=== PATIENT | female | born 1990 | race Caucasian/White ===

== ENCOUNTER 2016-09-25 10:06 | Inpatient (IN) | payer BC ==
[~2016-09-25] VITALS: Ht 165.1 cm; Wt 84.5 kg
[2016-11-02] VITALS (28 sets, daily range): BP systolic 88–146; BP diastolic 47–83; PULSE 63–111; TEMP 97.4–97.9
[2016-11-02] MEDS ORDERED: PRENATAL (07:29)
[2016-11-02 08:02] LABS: BASO % 0.4 % (0.0-2.0); EOS # 0.1 (0.0-0.7); EOS % 0.8 % (0-4.0); GRAN # 8.7 (1.4-6.5); GRAN % 77.1 % (42.2-75.2); HEMATOCRIT 39.2 % (37.0-47.0); HEMOGLOBIN 13.2 g/dl (12.5-16.0); LYMPH # 1.6 (1.2-3.4); LYMPH % 14.1 % (20.0-51.0); MEAN CELL VOLUME 88 fl (80.0-100.0); MEAN CORPUSCULAR HEMOGLOBIN 30 pg (27.0-31.0); MEAN CORPUSCULAR HGB CONC 34 g/dl (33.0-37.0); MEAN PLATELET VOLUME 12.1 fl (7.4-10.4); MONO # 0.7 (0.1-0.6); MONO % 5.7 % (1.7-9.3); PLATELET COUNT 178 K/mm3 (130-400); RED BLOOD COUNT 4.44 M/mm3 (4.10-5.30); REDCELL DISTRIBUTION WIDTH-CV 13.5 % (11.5-14.5); WHITE BLOOD COUNT 11.3 K/mm3 (4.8-10.8)
[2016-11-02 12:23] LABS: ADD PATHOLOGY DIFF REVIEW NO
[2016-11-02 12:26] LABS: BAND 3 % (0-10); EOSINOPHIL 1 % (0-4); NEUTROPHILS 79 % (42.0-75.2); PLATELET ESTIMATE NORMAL (NORMAL); TOTAL CELLS COUNTED 100
[2016-11-03 04:10] VITALS: BP 123/63; PULSE 70; TEMP 97.6
[2016-11-03 07:55] VITALS: BP 124/64; PULSE 78; TEMP 98.2
[2016-11-03 08:30] LABS: HEMATOCRIT 35.8 % (37.0-47.0); HEMOGLOBIN 11.8 g/dl (12.5-16.0)
[2016-11-03] MEDS ORDERED: MOTRIN 800800 MG/TAB PO (09:36)
[2016-11-03] MEDS ORDERED: PERCOCET 325 MG1 TA2 PO (09:36)
== END 2016-11-03 13:20 | disposition home or self-care (01) | DRG 775 ==
LOC: LDR 11-02 06:56 → OB 11-02 14:40 → EDSTATUS 11-03 06:41 → LDRO 11-03 10:02 → OB 11-03 13:20
PROVIDERS: Obstetrics & Gynecology
PROC: 10E0XZZ Delivery of Products of Conception, External Approach (ICD-10-PCS; principal; 2016-11-02)
PROC: 0HQ9XZZ Repair Perineum Skin, External Approach (ICD-10-PCS; 2016-11-02)
PROC: 3E033VJ Introduction of Other Hormone into Peripheral Vein, Percutaneous Approach (ICD-10-PCS; 2016-11-02)
DX: O70.0 First degree perineal laceration during delivery (principal); Z3A.39 39 weeks gestation of pregnancy; Z37.0 Single live birth
CPT/HCPCS: J2590; J2795; J7120

== ENCOUNTER 2020-02-09 08:34 | Day surgery (SDC) | payer BC ==
[2020-02-09] VITALS (7 sets, daily range): BP systolic 108–132; BP diastolic 53–74; PULSE 65–95; TEMP 97.9–98.3
[~2020-02-09] VITALS: Ht 165.1 cm; Wt 73.5 kg
[~2020-02-09 08:34] MED LIST: MOTRIN 800800 MG/TAB PO; PERCOCET 325 MG1 TA2 PO; PRENATAL
--- NOTE | 2020-02-09 11:50 | NUR ---
Pt to [facility] via cart from PACU. Pt drowsy, but awake. Pt rates abdominal pain 3/10 at this time. Denies nausea. 3 incisions sites are clean and dry with smith set intact. IV fluids infusing to RT hand without difficulties. Pt wanting to rest. Denies need for pain medication at this time. Will continue to monitor. Call light within reach. Side rails up x2.
--- NOTE | 2020-02-09 12:05 | NUR ---
Pt continues to rest. Dozing on and off. Denies needs. Call light within reach.
--- NOTE | 2020-02-09 12:20 | NUR ---
Pt sleeping. Respirations even and unlabored. Call light within reach.
--- NOTE | 2020-02-09 12:35 | NUR ---
Pt awake. Pt rates pain 3/10 to abdomen. Pt able to tolerate PO food and fluids without nausea. [place] 5mg/325mg 1tablet po given per PRN orders. Will continue tomonitor.
--- NOTE | 2020-02-09 12:50 | NUR ---
Pt resting. Denies needs. Call light within reach.
--- NOTE | 2020-02-09 13:00 | NUR ---
Pt up to restroom with stand by assist. Pt voids without difficulties. Pt back to room. Warm blankets provided. Side rails up x2. Call light within reach.
--- NOTE | 2020-02-09 13:50 | NUR ---
Discharge instructions reviewed. Pt voices understanding. IV site discontinued with all parts intact. Pt up to dress. Call light within reach.
--- NOTE | 2020-02-09 14:07 | NUR ---
Pt escorted to private car via wheel chair. Pt accompanied home by her .
== END 2020-02-09 14:07 | disposition home or self-care (01) ==
LOC: SDCO 08:34
DX: K40.90 Unilateral inguinal hernia, without obstruction or gangrene, not specified as recurrent (principal); Z82.3 Family history of stroke; Z88.2 Allergy status to sulfonamides
CPT/HCPCS: J0690; J1100; J1885; J2405; J2704; J3010; J7120

== ENCOUNTER → 2021-06-29 | Outpatient (CLI) | payer BC ==
[~2021-06-29] VITALS: Ht 165.1 cm; Wt 73.6 kg
[2021-06-29 12:25] VITALS: BP 122/70; PULSE 86; TEMP 98.3
[2021-06-29 13:01] VITALS: BP 114/62; PULSE 83
== END ==
LOC: COL.RAD 06-27 09:00
DX: R59.0 Localized enlarged lymph nodes (principal); R19.09 Other intra-abdominal and pelvic swelling, mass and lump